=== PATIENT | male | born 1995 | race Caucasian/White ===

== ENCOUNTER 2017-06-14 21:49 | Emergency (ER) | payer OTHER ==
[2017-06-14 22:02] VITALS: BP 142/85
--- NOTE | 2017-06-14 22:03 | UC ---
Complaint Male HPI - HPI Summary HPI Summary: urinary pain , urgency, frequency and ramón bleeding began this evening---no flank pain, nausea, vomiting or fever - History of Current Complaint Chief Complaint: UCGU Stated Complaint: BLOODIN URINE Time Seen by Provider: 06/14/17 22:00 Hx Obtained From: Patient Onset/Duration: Sudden Onset, Lasting Hours, Still Present Timing: Constant Severity Initially: Moderate Severity Currently: Moderate Pain Intensity: 5 Pain Scale Used: 0-10 Numeric Location: Penis Character: Burning, Constant Pressure Aggravating Factor(s): Voiding Alleviating Factor(s): Nothing - Allergies/Home Medications Allergies/Adverse Reactions: Allergies Allergy/AdvReac Type Severity Reaction Status Date / Time No Known Allergies Allergy Verified 06/14/17 21:56 PMH/Surg Hx/FS Hx/Imm Hx Previously Healthy: Yes - Family History Known Family History: Positive: None - Social History Occupation: Student Lives: Alone Alcohol Use: Occasionally Substance Use Type: None Smoking Status (MU): Never Smoked Tobacco Review of Systems Constitutional: Negative Skin: Negative Eyes: Negative ENT: Negative Respiratory: Negative Cardiovascular: Negative Gastrointestinal: Negative Genitourinary: Dysuria, Hematuria, Frequency, Urgency Motor: Negative Neurovascular: Negative Musculoskeletal: Negative Neurological: Negative Psychological: Negative All Other Systems Reviewed And Are Negative: Yes Physical Exam Triage Information Reviewed: Yes Appearance: Well-Appearing, No Pain Distress, Well-Nourished Vital Signs Reviewed: Yes Eye Exam: Normal Eyes: Positive: Conjunctiva Clear ENT Exam: Normal ENT: Positive: Normal ENT inspection, Hearing grossly normal. Negative: Nasal congestion, Nasal drainage, TMs normal, Trismus, Muffled/hoarse voice Dental Exam: Normal Neck exam: Normal Neck: Positive: Supple, Nontender Respiratory Exam: Normal Respiratory: Positive: Chest non-tender, No respiratory distress, No accessory muscle use Cardiovascular Exam: Normal Cardiovascular: Positive: RRR, Pulses Normal, Brisk Capillary Refill Abdominal Exam: Normal Abdomen Description: Positive: Nontender, No Organomegaly, Soft. Negative: CVA Tenderness (R), CVA Tenderness (L) Bowel Sounds: Positive: Present Musculoskeletal Exam: Normal Musculoskeletal: Positive: Strength Intact, ROM Intact, No Edema Neurological Exam: Normal Neurological: Positive: Alert Psychological Exam: Normal Skin Exam: Normal Diagnostics - Laboratory Diagnostic Studies Completed/Ordered: ua-hematuria, leuks Complaint Male Course/Dx - Course Course Of Treatment: cipro, pridium, reviewed case with MD-plan to transfer to ED for labs-- - Differential Dx/Diagnosis Differential Diagnosis/HQI/PQRI: Cancer, Pyelonephritis, Testicular Torsion, Urinary Tract Infection Provider Diagnoses: Hematuria Discharge - Discharge Plan Condition: Stable Disposition: HOME Prescriptions: Ciprofloxacin TAB* [Cipro 250 MG Tab*] 250 mg PO BID #14 tab Phenazopyridine TAB* [Pyridium 100 mg TAB*] 100 mg PO TID PRN #9 tab PRN Reason: urinary pain/burning Patient Education Materials: Phenazopyridine (By mouth), Urinary Tract Infection in Men (ED), Hematuria (ED) Referrals: [facility] [Outside] - 7 Days Additional Instructions: To ED for urgent further and higher level of care
[2017-06-14] MEDS ORDERED: Ciprofloxacin TAB* 500 MG PO ONE (22:11)
[2017-06-14] MEDS ORDERED: Phenazopyridine TAB* 100 MG PO ONE (22:12)
== END 2017-06-14 22:50 | disposition home or self-care (01) ==
LOC: UCEAST 21:49
DX: R31.9 Hematuria, unspecified (principal)
CPT/HCPCS: 81003; 87077; 87086; 87186; 87491; 87591; 99202; A9270-GY; G0463

== ENCOUNTER 2017-06-14 22:57 | Emergency (ER) | payer OTHER ==
[2017-06-15 03:31] LABS: Hematocrit 42 % (42-52); Hemoglobin 14.3 g/dl (14.0-18.0); Mean Corpuscular HGB Conc 34 g/dl (31-36); Mean Corpuscular Hemoglobin 32 pg (27-31); Mean Corpuscular Volume 93 fL (80-94); Mean Platelet Volume 8 um3 (7.4-10.4); Red Blood Count 4.48 10^6/ul (4.0-5.4); Red Cell Distribution Width 13 % (10.5-15); White Blood Count 8.2 10^3/ul (3.5-10.8)
[2017-06-15 03:38] LABS: Urine Bacteria 1+ (Absent)
[2017-06-15 03:48] LABS: Albumin 4.4 g/dL (3.2-5.2); BUN/Creatinine Ratio 16.5 (8-20); C Reactive Protein 27.66 mg/L (< 5.00); Calcium 9.5 mg/dL (8.6-10.3); EGFR African American 123.3 (>60); EGFR Non-African American 95.9 (>60); Globulin 2.9 g/dL (2-4); Total Bilirubin 1.3 mg/dL (0.2-1.0); Total Protein 7.3 g/dL (6.4-8.9)
[2017-06-15 04:54] VITALS: BP 120/64
--- NOTE | 2017-06-15 06:53 | ED ---
Herminio Lindsey Rebecca, scribed for Willy Harper MD on 06/15/17 at 0246 . GI/ HPI - HPI Summary HPI Summary: Pt is a 22 y/o M who presents to ED referred from [facility] c/o hematuria. The first episode of hematuria occurred at 2100 tonight and again at 2200 while at [facility]. Blood is described as bright red with small clots. Pt additionally c/o mild dysuria, urinary urgency, and penile discharge. Discharge began about 5 days ago and have resolved since hematuria began. Sx alleviated by Pyridium, aggravated by nothing. Denies any back pain. No recent trauma. Is not on blood thinners. Pt was on a hiking trip where he hiked more than usual prior to onset of sx. Pt is sexually active and his partner is not having similar sx. - History of Current Complaint Chief Complaint: EDGeneral Stated Complaint: XFER FROM [facility]//BLOOD IN URINE Hx Obtained From: Patient Onset/Duration: Still Present Current Severity: Mild Pain Intensity: 2 Associated Signs and Symptoms: Positive: Hematuria, Dysuria. Negative: Back Pain Additional Signs & Symptoms: Positive: Penile Discharge Aggravating Factor(s): Nothing Alleviating Factor(s): Medication - Pyridium - Allergy/Home Medications Allergies/Adverse Reactions: Allergies Allergy/AdvReac Type Severity Reaction Status Date / Time No Known Allergies Allergy Verified 06/14/17 21:56 PMH/Surg Hx/FS Hx/Imm Hx Previously Healthy: Yes Endocrine/Hematology History: Denies: Hx Diabetes Cardiovascular History: Denies: Hx Coronary Artery Disease, Hx Hypertension - Surgical History Surgery Procedure, Year, and Place: ankle 2013 bpone spur removal Infectious Disease History: No Infectious Disease History: Denies: Hx Clostridium Difficile, Hx Hepatitis, Hx Human Immunodeficiency Virus (HIV), Hx of Known/Suspected MRSA, Hx Shingles, Hx Tuberculosis, Traveled Outside the [place] in Last 30 Days - Family History Known Family History: Positive: Hypertension - mother - Social History Alcohol Use: Weekly Substance Use Type: Reports: None Smoking Status (MU): Never Smoked Tobacco Type: Smokeless Tobacco Review of Systems Positive: dysuria - mild, discharge - penile, hematuria, urgency Positive: Arthralgia - Negative: back pain All Other Systems Reviewed And Are Negative: Yes Physical Exam - Summary Physical Exam Summary: The patient is well-nourished in no acute distress and in no acute pain. The skin is warm and dry and skin color reflects adequate perfusion. HEENT: The head is normocephalic and atraumatic. The pupils are equal and reactive. The conjunctivae are clear and without drainage. Nares are patent and without drainage. Mouth reveals moist mucous membranes and the throat is without erythema and exudate. The external ears are intact. The ear canals are patent and without drainage. The tympanic membranes are intact. Respiratory: Chest is non-tender. Lungs are clear to auscultation and breath sounds are symmetrical and equal. Cardiovascular: Hear is regular rate and rhythm. There is no murmur or rub auscultated. Pulses are symmetrical and equal. Abdomen: The abdomen is soft and non-tender. There is no suprapubic tenderness. There are normal bowel sounds heard in all four quadrants and there is no organomegaly palpated. Musculoskeletal: There is no back pain noted. Extremities are non-tender with full range of motion. No CVA tenderness. Neurological: Patient is alert and oriented to person, place and time. The patient has symmetrical motor strength in all four extremities. Psychiatric: The patient has an appropriate affect and does not exhibit any anxiety or depression. Triage Information Reviewed: Yes Vital Signs On Initial Exam: Initial Vitals Temp Pulse Resp BP Pulse Ox 98.8 F 64 20 134/75 99 06/14/17 23:00 06/14/17 23:00 06/14/17 23:00 06/14/17 23:00 06/14/17 23:00 Vital Signs Reviewed: Yes Diagnostics - Vital Signs Vital Signs Temp Pulse Resp BP Pulse Ox 06/15/17 01:58 99.6 F 64 20 122/61 06/15/17 00:31 98.8 F 66 20 141/61 100 06/14/17 23:00 98.8 F 64 20 134/75 99 - Laboratory Lab Results: Lab Results 06/15/17 06/15/17 06/15/17 Range/Units 02:08 03:15 03:15 WBC 8.2 (3.5-10.8) 10^3/ul RBC 4.48 (4.0-5.4) 10^6/ul Hgb 14.3 (14.0-18.0) g/dl Hct 42 (42-52) % MCV 93 (80-94) fL MCH 32 H (27-31) pg MCHC 34 (31-36) g/dl RDW 13 (10.5-15) % Plt Count 209 (150-450) 10^3/ul MPV 8 (7.4-10.4) um3 Neut % (Auto) 71.5 (38-83) % Lymph % (Auto) 14.5 L (25-47) % [place] % (Auto) 10.4 H (1-9) % Eos % (Auto) 3.0 (0-6) % Baso % (Auto) 0.6 (0-2) % Absolute Neuts (auto) 5.8 (1.5-7.7) 10^3/ul Absolute Lymphs (auto) 1.2 (1.0-4.8) 10^3/ul Absolute Monos (auto) 0.9 H (0-0.8) 10^3/ul Absolute Eos (auto) 0.2 (0-0.6) 10^3/ul Absolute Basos (auto) 0 (0-0.2) 10^3/ul Absolute Nucleated RBC 0 10^3/ul Nucleated RBC % 0 INR (Anticoag Therapy) (0.89-1.11) Sodium 137 (133-145) mmol/L Potassium 4.0 (3.5-5.0) mmol/L Chloride 102 (101-111) mmol/L Carbon Dioxide 29 (22-32) mmol/L Anion Gap 6 (2-11) mmol/L BUN 16 (6-24) mg/dL Creatinine 0.97 (0.67-1.17) mg/dL Est GFR ( Amer) 123.3 (>60) Est GFR (Non-Af Amer) 95.9 (>60) BUN/Creatinine Ratio 16.5 (8-20) Glucose 104 H (70-100) mg/dL Lactic Acid (0.5-2.0) mmol/L Calcium 9.5 (8.6-10.3) mg/dL Total Bilirubin 1.30 H (0.2-1.0) mg/dL AST 16 (13-39) U/L ALT 11 (7-52) U/L Alkaline Phosphatase 46 (34-104) U/L C-Reactive Protein 27.66 H (< 5.00) mg/L Total Protein 7.3 (6.4-8.9) g/dL Albumin 4.4 (3.2-5.2) g/dL Globulin 2.9 (2-4) g/dL Albumin/Globulin Ratio 1.5 (1-3) Urine Color [place]sey[place] Urine Appearance Turbid Urine pH TNP Ur Specific [place] 1.026 (1.010-1.030) Urine Protein TNP Urine Ketones TNP Urine Blood TNP Urine Nitrate TNP Urine Bilirubin TNP Urine Urobilinogen TNP Ur Leukocyte Esterase TNP Urine WBC (Auto) 3+(>20/hpf) H (Absent) Urine RBC (Auto) 3+(>10/hpf) H (Absent) Urine Bacteria 1+ H (Absent) Urinalysis Comment Urine Glucose TNP Urine Ascorbic Acid TNP 06/15/17 06/15/17 Range/Units 03:15 03:15 WBC (3.5-10.8) 10^3/ul RBC (4.0-5.4) 10^6/ul Hgb (14.0-18.0) g/dl Hct (42-52) % MCV (80-94) fL MCH (27-31) pg MCHC (31-36) g/dl RDW (10.5-15) % Plt Count (150-450) 10^3/ul MPV (7.4-10.4) um3 Neut % (Auto) (38-83) % Lymph % (Auto) (25-47) % [place] % (Auto) (1-9) % Eos % (Auto) (0-6) % Baso % (Auto) (0-2) % Absolute Neuts (auto) (1.5-7.7) 10^3/ul Absolute Lymphs (auto) (1.0-4.8) 10^3/ul Absolute Monos (auto) (0-0.8) 10^3/ul Absolute Eos (auto) (0-0.6) 10^3/ul Absolute Basos (auto) (0-0.2) 10^3/ul Absolute Nucleated RBC 10^3/ul Nucleated RBC % INR (Anticoag Therapy) 1.00 (0.89-1.11) Sodium (133-145) mmol/L Potassium (3.5-5.0) mmol/L Chloride (101-111) mmol/L Carbon Dioxide (22-32) mmol/L Anion Gap (2-11) mmol/L BUN (6-24) mg/dL Creatinine (0.67-1.17) mg/dL Est GFR ( Amer) (>60) Est GFR (Non-Af Amer) (>60) BUN/Creatinine Ratio (8-20) Glucose (70-100) mg/dL Lactic Acid 1.0 (0.5-2.0) mmol/L Calcium (8.6-10.3) mg/dL Total Bilirubin (0.2-1.0) mg/dL AST (13-39) U/L ALT (7-52) U/L Alkaline Phosphatase (34-104) U/L C-Reactive Protein (< 5.00) mg/L Total Protein (6.4-8.9) g/dL Albumin (3.2-5.2) g/dL Globulin (2-4) g/dL Albumin/Globulin Ratio (1-3) Urine Color Urine Appearance Urine pH Ur Specific [place] (1.010-1.030) Urine Protein Urine Ketones Urine Blood Urine Nitrate Urine Bilirubin Urine Urobilinogen Ur Leukocyte Esterase Urine WBC (Auto) (Absent) Urine RBC (Auto) (Absent) Urine Bacteria (Absent) Urinalysis Comment Urine Glucose Urine Ascorbic Acid Result Diagrams: 06/15/17 03:15 06/15/17 03:15 Lab Statement: Any lab studies that have been ordered have been reviewed, and results considered in the medical decision making process. - CT CT Abd/Pel CT Interpretation: Positive (See Comments) - Bladder wall thickening the haziness in the surrounding tissues suggests cystitis. Correlation with history and urinalysis is recommended. Re-Evaluation - Re-Evaluation First Eval Re-Evaluation Time: 04:46 Change: Improved Comment: Discussed CT results with the pt who is feeling improved. GIGU Course/Dx - Course Assessment/Plan: Pt is a 22 y/o M who presents to ED referred from [facility] c/o hematuria. The first episode of hematuria occurred at 2100 tonight and again at 2200 while at [facility]. Blood is described as bright red with small clots. Pt additionally c/o mild dysuria, urinary urgency, and penile discharge. Discharge began about 5 days ago and have resolved since hematuria began. Sx alleviated by Pyridium, aggravated by nothing. Denies any back pain. No recent trauma. Is not on blood thinners. Pt was on a hiking trip where he hiked more than usual prior to onset of sx. Pt is sexually active and his partner is not having similar sx. CT Abd/Pel reveals Bladder wall thickening the haziness in the surrounding tissues suggests cystitis. Correlation with history and urinalysis is recommended. Upon reevaluation, pt's sx have improved. He will be D/C to home with Dx of cystitis and a follow up with his PCP with directions to continue Pyridium and Cipro. He understands and agrees. - Diagnoses Differential Diagnoses - Male: Renal Colic, Urinary Tract Infection Provider Diagnoses: Cystitis Discharge - Discharge Plan Condition: Stable Disposition: HOME Patient Education Materials: Interstitial Cystitis (ED) Referrals: [facility], [Primary Care Provider] - 3 Days Additional Instructions: Continue with Ciprofloxacin and Pyridium as advised. The documentation as recorded by the Herminio hernandez Rebecca accurately reflects the service I personally performed and the decisions made by , Willy Harper MD.
--- NOTE | 2017-06-15 08:08 | RAD ---
CLINICAL HISTORY: Hematuria COMPARISON: None TECHNIQUE: Multiple contiguous axial CT scans were obtained of the abdomen and pelvis, without intravenous contrast enhancement. Coronal and sagittal multiplanar reformations are submitted for review. Oral contrast was not administered. FINDINGS: The study is limited by the lack of intravenous contrast. This limits evaluation of the solid organs and vasculature. LUNG BASES: The lung bases are clear. LIVER: The liver is normal in shape, size, contour, and attenuation. BILE DUCTS: There is no intrahepatic or extrahepatic biliary dilatation. GALLBLADDER: The gallbladder is normal, without pericholecystic inflammatory change. PANCREAS: The pancreas is normal, without mass or ductal dilatation. SPLEEN: Normal in size and appearance. UPPER GI TRACT: Evaluation of the gastrointestinal tract is limited by incomplete gastric distention. The upper GI tract is unremarkable. SMALL BOWEL AND MESENTERY: The small bowel is normal in contour, course, and caliber. There is no obstruction or dilatation. COLON: The colon is normal in contour, course, caliber. There is no pericolonic inflammatory change. There is a tubular, vermiform, hollow viscus that is blind ending, and originates from the cecum, consistent with a normal appendix. There is no periappendiceal inflammatory change. ADRENALS: Normal bilaterally. KIDNEYS: The kidneys are normal in shape, size, contour, and axis. There is no hydronephrosis or nephrolithiasis. BLADDER: There is diffuse thickening of the bladder wall with stranding of the perivesicular fat. PELVIC ORGANS: The prostate gland is normal. The seminal vesicles are symmetric. AORTA: The aorta is normal. IVC: Unremarkable LYMPH NODES: There is no lymphadenopathy by size criteria. ABDOMINAL WALL: There is no evidence for abdominal wall hernia. BONES AND SOFT TISSUES: Unremarkable OTHER: None IMPRESSION: 1. NO HYDRONEPHROSIS OR NEPHROLITHIASIS. 2. BLADDER WALL THICKENING WITH ASSOCIATED INFLAMMATORY CHANGE SUGGESTIVE OF CYSTITIS. 3. NORMAL APPENDIX
== END 2017-06-15 05:03 | disposition home or self-care (01) ==
LOC: ED 22:57
DX: N30.91 Cystitis, unspecified with hematuria (principal); R30.0 Dysuria
CPT/HCPCS: 36415; 74176; 80053; 81003; 81015; 83605; 85025; 85610; 86140; 87491; 87591; 99282